=== PATIENT | male | born 1965 | race Caucasian/White ===

== ENCOUNTER 2020-02-23 12:33 | Emergency (ER) | payer BC ==
[2020-02-23] MEDS ORDERED: Sodium Phosphate,Monobasic/Sodium Phosphate,Dibasic Enema 133 ML Bottle RECTAL ONE (12:52)
[2020-02-23] MEDS ORDERED: Diatrizoate Meglumine/Diatrizoate Sodium 37% 30 ML Bottle PO SCH (14:30)
--- NOTE | 2020-02-23 16:58 | CT ---
CLINICAL DATA: Constipation. UNENHANCED ABDOMEN AND PELVIC CT, 23 FEBRUARY 2020: Multislice acquisition through the abdomen and pelvis without IV, but with oral contrast was performed. No priors. The lung bases are clear. The heart size is normal. The liver is normal size with homogeneous attenuation. No focal hepatic lesions. The gallbladder appears normal. The spleen appears normal. The pancreas appears normal. The right and left adrenals appear normal. The right and left kidneys appear normal. No nephrocalcinosis or nephrolithiasis. No hydronephrosis or hydroureter. The bladder is partially fluid-filled. It appears normal. The prostate is mildly enlarged. There are calcifications within the prostate, consistent with chronic prostatitis. The appendix is not dilated. No evidence of appendicitis. There is a segment of the mid sigmoid colon with mural thickening and mild pericolonic fat stranding. No associated diverticula. This most likely represents colitis. An annular constricting neoplasm should at least be considered and follow-up imaging or colonoscopy is recommended. The colon proximal to this is gas-filled and minimally distended. There are scattered air-fluid levels. There is apparent pneumatosis within the distal ileum just proximal to the ileocecal valve. There are multiple loops of small bowel within the right abdomen anteriorly with somewhat abnormal positioning suggesting the possibility of an internal hernia. There is a fat-containing umbilical hernia. No free air. No free fluid. No adenopathy. No aortic aneurysm. IMPRESSION: Multiple findings, as discussed above. See above recommendation. Job: [id number] [facility]
--- NOTE | 2020-02-23 17:06 | CR ---
CLINICAL DATA: Constipation. SUPINE AND UPRIGHT ABDOMEN: There is residual contrast noted within the stomach and right colon. There is gas throughout the colon. There is mural thickening within the distal descending and sigmoid colon. Colitis should be considered. No free air. Job: [id number] [facility]
[2020-02-23] MEDS ORDERED: Sodium Chloride 0.9% 1,000 ML IV SCH (17:45)
--- NOTE | 2020-02-23 18:42 | ER ---
REASON FOR EMERGENCY ROOM VISIT: Abdominal pain and distention. HISTORY: This previously healthy 54-year-old gentleman who comes in with a 4-day history of increasing abdominal distention and no bowel movement. He has had some nausea with this, but no vomiting. He had no prior history of blood per rectum or diarrhea. He has no history of constipation prior to this. He has never had a colonoscopy or previous abdominal operation. He states that his abdomen is uncomfortable because of the distention and he has had some cramping across his lower abdomen. He has not had any fever. He does state that he has had a 16-pound weight loss over the past year, which was because of a diet. PAST MEDICAL HISTORY: Unremarkable except for childhood trauma. MEDICATIONS: None. ALLERGIES: TO BEE POLLEN. REVIEW OF SYSTEMS: Pertinent positives and negatives as listed in the HPI. FAMILY HISTORY: No history of Crohn disease or colonic disease. No history of colon cancer. PHYSICAL EXAMINATION: GENERAL: He is awake and alert and somewhat uncomfortable. He prefers to stand at the bedside, leaning over for relief of discomfort. VITAL SIGNS: His blood pressure is 156/103. He is afebrile. Heart rate is 98, respiratory rate is 20, O2 sats 98%. HEENT: No scleral icterus is noted. Normal oropharynx. NECK: Supple. No JVD. No adenopathy. CHEST: Clear to auscultation with good air exchange bilaterally, and no wheezes, rhonchi, or rales. CARDIAC: Regular rate without murmur. ABDOMEN: Distended. He does have bowel sounds, some of which are high-pitched. He has some mild and poorly localized left-sided tenderness to deep palpation, but no guarding or rebound and no percussion tenderness. There are no palpable masses. No hepatosplenomegaly. His abdomen is tympanitic to percussion. RECTAL: The rectal vault is empty except for a small amount of liquid green stool. No mass could be palpated. EXTREMITIES: Normal pulses. No edema. NEUROLOGIC: He moves all 4 extremities to command. No facial asymmetry is noted. Sensory exam is normal to crude touch. LABORATORY DATA: CBC is unremarkable except his white count is borderline elevated at 11,100. His hemoglobin is 13.3. His CMP is unremarkable except for a sodium of 134 and glucose of 115 (nonfasting). His liver enzymes are normal. His creatinine is 1.27. A rapid COVID test is pending at the time of this dictation. IMAGING: X-rays of his abdomen include a flat and upright and a CT scan, show an inflammatory process suggestive of colitis involving his descending colon and his proximal sigmoid colon. This was not thought to be due to diverticulosis or diverticulitis. He also has some dilated loops of small bowel, 1 of which is situated in such a way that the radiologist was concerned about the possibility of an internal hernia, although he was not definite in this. There is some pneumatosis involving his terminal ileum. IMPRESSION: Obstipation with the above-mentioned CT findings, possibly inflammatory bowel disease versus internal hernia (see above). PLAN: I spoke with the emergency room physician as well as the general surgeon on-call at [facility] and finally spoke to the hospitalist who is Dr. Miguel. He agreed with me that the patient could be accepted in transfer where he will be hydrated and possibly started on antibiotics. Surgical consultation will be obtained. I explained this to the patient. He will be going by ground ambulance because he has severe discomfort, and he agrees with this plan. All questions were answered. SHILOH/REGI /[id number]
== END 2020-02-23 19:30 ==
LOC: LB.ED 12:33
DX: K59.00 Constipation, unspecified (principal); Z91.030 Bee allergy status; Z20.822 Contact with and (suspected) exposure to COVID-19
CPT/HCPCS: 36415; 74019; 74176; 80053; 85025; 99285; 99285-25; A0425; A0429; A9270-GY; J7030; Q9963; U0002